=== PATIENT | male | born 1995 | race African-American/Black ===

== ENCOUNTER 2019-11-26 21:43 | Emergency (ER) | payer MEDICAID ==
[~2019-11-26] VITALS: Ht 182.9 cm; Wt 68.0 kg
[2019-11-26 21:54] VITALS: BP_SYST 125
--- NOTE | 2019-11-27 00:06 | NUR ---
Patient was called, no response.
--- NOTE | 2019-11-27 00:11 | NUR ---
Patient was called, no response.
--- NOTE | 2019-11-27 00:16 | NUR ---
Patient left without being seen.
--- NOTE | 2019-11-27 00:16 | NUR ---
Patient was called, no response.
== END 2019-11-27 00:16 | disposition left against medical advice (07) ==
LOC: SED 21:43
DX: R05 Cough (principal); Z53.21 Procedure and treatment not carried out due to patient leaving prior to being seen by health care provider
CPT/HCPCS: 36415; 86710